=== PATIENT | male | born 1970 | race Caucasian/White ===

== ENCOUNTER → 2023-08-13 14:05 | Outpatient (REF) | payer OTHER, SELFPAY | LOC: HWRAD 14:05 | PROVIDERS: ATTENDING PHYSICIAN Nurse Practitioner | DX: M10.9 Gout, unspecified (principal) | CPT/HCPCS: 73630 ==

== ENCOUNTER 2023-09-19 13:45 | Inpatient (IN) | payer OTHER, SELFPAY ==
[2023-09-18 19:26] VITALS: BP 132/86
[2023-09-18 19:48] LABS: % Basophils 0.4 % (0-2); % Eosinophils 1.1 % (0-6); % Immature Granulocytes 0.3 % (0-0.5); % Lymphocytes 35.9 % (20.5-51.1); % Monocytes 7.9 % (1.7-9.3); % Neutrophils 54.4 % (42.2-75.2); Absolute Eosinophils 0.1 10^3/uL (0-0.7); Absolute Lymphocytes 3.7 10^3/uL (1.2-3.4); Absolute Monocytes 0.8 10^3/uL (0.1-0.6); Absolute Neutrophils 5.5 10^3/uL (1.4-6.5); Hematocrit 39.7 % (39.0-52.0); Hemoglobin 13.7 g/dL (13.0-18.0); Mean Corp Hgb Conc. 34.5 g/dL (33.0-37.0); Mean Corpuscular Hgb 29.5 pg (27.0-31.0); Mean Corpuscular Volume 85.6 fL (80.0-94.0); Mean Platelet Volume 9.1 fL (7.4-10.4); Nucleated Red Blood Cells % 0 % (-); Platelet Count 243 10^3/uL (130-400); Red Blood Cell Count 4.64 10^6/uL (4.70-6.10); Red Cell Dist. Width 13.1 % (11.5-14.5); White Blood Cell Count 10.2 10^3/uL (4.8-10.8)
[2023-09-18 20:10] LABS: ALT (SGPT) 24 U/L (0-50); AST (SGOT) 21 U/L (17-59); Albumin 4.5 g/dl (3.5-5.0); Alkaline Phosphatase 72 U/L (38-126); Blood Urea Nitrogen 28 mg/dl (9-20); Calcium 9.4 mg/dl (8.4-10.2); Carbon Dioxide 30 mmol/L (22-30); Chloride 101 mmol/L (98-107); Glucose 113 mg/dl (70-99); Potassium 4.9 mmol/L (3.5-5.1); Sodium 134 mmol/L (135-145); Total Bilirubin 0.3 mg/dl (0.2-1.3); Total Protein 6.9 g/dl (6.3-8.2); eGFR > 60.00
[2023-09-18 20:13] LABS: Troponin I < 0.012 ng/ml
[2023-09-18 22:21] VITALS: BP 132/90
--- NOTE | 2023-09-18 22:38 | ED.CVA ---
History of Present Illness
General
Chief Complaint: CVA/TIA Symptoms
Time Seen by Provider: 09/18/23 21:39
Onset of Stroke Symptoms
Onset of symptoms known: Yes
Date of onset of symptoms: 09/18/23
Time of onset of symptoms: 18:30
Travel History
Have you had any contact with someone who has COVID-19?: Yes
Comment: on friday
Do you have any symptoms of coronavirus? Fever > 100 degrees, chills, cough, shortness of breath, sore throat, loss of taste or smell, muscle aches, or headache?: No
History of Present Illness
History of Present Illness:
53-year-old male with history of hypertension and hyperlipidemia presents to the emergency department for evaluation of transient right peripheral vision loss that occurred earlier today. He states that he had abrupt loss of his right peripheral
vision lasting anywhere from 30 to 45 minutes. This was associated with a mild headache and lightheadedness. Symptoms resolved gradually upon arriving to the emergency department. He denies any other associated symptoms. Has never had any
similar symptoms. Denies any history of TIA or stroke. Denies any photophobia, neck pain, chest pain, shortness of breath, extremity paresthesias. was present during the event and denies noticing any confusion or dysarthria.
Past History
Past History
ED Past Medical History: HTN, Hypercholesterolemia and Hypothyroidism
ED Past Surgical History: Orthopedic (Shoulder surgery )
Social History
Tobacco: Non-smoker
Alcohol: Occasional
Personal:
Living: with family
Employment: Employed
Review of Systems
Review of Systems
Allergies reviewed?: Yes
All Other Systems: ROS reviewed and negative except as documented in HPI and ROS
Phy Exam
Physical Exam
Physical Exam:
GEN: Well appearing, NAD, WDWN
HEENT: Oral mucosa moist, no scleral icterus, no nasal congestion
Cardiac: Regular rate
Lung: No respiratory distress, no tachypnea
MSK: No gross deformity or injuries
Skin: Good color, no pallor or jaundice, no rashes
Neuro: AO x3; CN II-XII grossly intact. BUE strength 5/5 in all newell, sensation intact and symmetric. BLE strength 5/5 in all newell, sensation intact and symmetric. Visual newell intact x 4 bilaterally
Psych: Calm, cooperative
Course
Orders/Labs/Results
Orders:
Orders
09/18/23 19:33
EKG [Electrocardiogram (*1)] Urgent
Reason for Study: TIA/Stroke
Comment: symptoms
09/18/23 19:34
EKG- Treatment ONCE
09/18/23 19:[address] [CT Head W/o Iv Contrast] Urgent
Comment: sudden onset of headache following
Reason For Exam: loss of peripheral vision in one eye briefly
09/18/23 19:44
Complete Blood Count/With Diff Urgent
Comprehensive Metabolic Panel Urgent
Troponin I Urgent
09/18/23 22:18
Aspirin 325 mg PO NOW STA
Clopidogrel Bisulfate [Plavix] 75 mg PO NOW STA
Abnormal Lab Results
09/18/23
19:44
RBC 4.64 L 10^6/uL
(4.70-6.10)
Absolute Lymphs (auto) 3.7 H 10^3/uL
(1.2-3.4)
Absolute Monos (auto) 0.8 H 10^3/uL
(0.1-0.6)
Sodium 134 L mmol/L
(135-145)
BUN 28 H mg/dl
(9-20)
Glucose 113 H mg/dl
(70-99)
09/18/23 19:44
09/18/23 19:44
Vital Signs
Initial and Last Documented VS:
Initial Vital Signs
Temp Pulse Resp BP Pulse Ox
98.1 F 84 16 132/86 97
09/18/23 19:26 09/18/23 19:26 09/18/23 19:26 09/18/23 19:26 09/18/23 19:26
Last Documented Vital Signs
Temp Pulse Resp BP Pulse Ox
98.1 F 84 16 132/86 97
09/18/23 19:26 09/18/23 19:26 09/18/23 19:26 09/18/23 19:26 09/18/23 19:26
MDM/Problems Addressed
MDM/Problems Addressed:
Patient's symptoms are highly concerning for a TIA, he is high risk for future cerebrovascular events given his history of hypertension hyperlipidemia and his noncontrast head CT showing parietal encephalomalacia suggesting a prior CVA. Patient has
no known history of prior CVA. No prior carotid imaging in his past. Case discussed with neurology, recommend dual antiplatelets and admission for further TIA/CVA workup
Comment
Comment:
EKG independently interpreted by me shows normal sinus rhythm at a rate of [address] changes concerning for ischemia
*Critical Care Note
Total Time (30-74mins, 75-104mins- exclusive of procedures): Not Applicable
ED Attending Note
-
Portions of this chart may have been created with voice recognition software.� Occasional wrong word or��sound alike� substitutions may have occurred due to the inherent limitations of voice recognition software.
Discharge Plan
Departure
Patient Disposition: Admit
Date of Disposition: 09/18/23
Time of Disposition: 22:41
Admit to: Telemetry
Presentation/result/management discussed w/ accepting MD/DO: Hospitalist
Discharge Problem:
Transient ischemic attack (TIA)
Prescriptions:
No Action
methocarbamol 500 mg Tablet
750 mg PO Q8H
acetaminophen [Tylenol] 325 mg Tablet
650 mg PO Q6HPRN PRN (Reason: mild pain)
atorvastatin [Lipitor] 10 mg Tablet
10 mg PO HS
meloxicam [Mobic] 15 mg Tablet
15 mg PO DAILY
Theragen Tablet
1 tab PO DAILY
allopurinol 100 mg Tablet
100 mg PO DAILY
levothyroxine [Synthroid] 125 mcg Tablet
125 mcg PO DAILY
lisinopril 10 mg Tablet
10 mg PO DAILY
Referrals:
Sienna Rocha CRNP [Family Provider] -
Interventions
Interventions:
*Risk Screen - Suicide Last Done: 09/18/23 19:26
*General Assessment Last Done: 09/18/23 19:26
*Neglect/Abuse Screening Last Done: 09/18/23 19:26
*ED COVID-19 Vaccine History Last Done: 09/18/23 19:26
ED- Pulmonary Assessment Last Done: 09/18/23 22:27
ED- Neurological Assessment Last Done: 09/18/23 22:27
ED- Cardiac Assessment Last Done: 09/18/23 22:27
[2023-09-18] MEDS: PLAVIX 75 MG PO (22:39)
[2023-09-18] MEDS: ASPIRIN 325 MG PO (22:39)
[2023-09-18 23:00] VITALS: BP 121/80
--- NOTE | 2023-09-18 23:01 | HPS.HSE ---
Family Physician
-
Family Physician: DENEEN Paris
Chief Complaint
-
right peripheral vision loss
History of Present Illness
53-year-old male past medical history of hypertension, hypercholesteremia, hypothyroidism presenting to the emergency room for transient right peripheral vision loss from the right eye at 6:30 PM today. He had abrupt loss of his right peripheral
vision lasting 30 to 45 minutes associated with mild headache and lightheadedness. Symptoms resolved upon arriving to the emergency room. He denies any history of TIA or stroke although he did have an episode 3 years ago with bilateral blurry
vision and headache that he attributes to migraine. He denies any photophobia, neck pain, numbness or tingling, difficulty speaking, focal weakness, gait dysfunction.
He denies any history of heart disease.
He smokes half a pack of cigarettes a day. He drinks alcohol occasionally. He denies any other drugs. His mother had vascular disease.
Medical History
Past Medical History
Past Medical History: Reports Other ( hypertension, hypercholesteremia, hypothyroidism)
Past Surgical History: Reports None
Social History
Tobacco: Smoker
Alcohol: Occasional
Drug: None
Family History
Family History: Not pertinent
Allergies / Home Medications
Allergies reflects when Allergies were last updated in [facility].
Home Medications with original date entered in [facility]
Allergy/Medication List:
Allergies
Allergy/AdvReac Type Severity Reaction Status Date / Time
sulfamethoxazole Allergy Unknown Verified 09/18/23 19:40
[From Bactrim]
trimethoprim [From Bactrim] Allergy Unknown Verified 09/18/23 19:40
yellow jacket Allergy Vomiting Uncoded 09/18/23 19:40
Home Medications
acetaminophen 325 mg tablet (Tylenol) 650 mg PO Q6HPRN PRN mild pain 09/18/23
allopurinol 100 mg tablet 100 mg PO DAILY 09/18/23
atorvastatin 10 mg tablet (Lipitor) 10 mg PO HS 09/18/23
levothyroxine 125 mcg tablet (Synthroid) 125 mcg PO DAILY 09/18/23
lisinopril 10 mg tablet 10 mg PO DAILY 09/18/23
meloxicam 15 mg tablet 15 mg PO DAILY 09/18/23
methocarbamol 500 mg tablet 750 mg PO Q8H 09/18/23
therapeutic multivitamin 1 tab PO DAILY 09/18/23
Review of Systems
-
History Source: Patient
A 12 point ROS was completed and negative except as noted: Yes
Constitutional: Reports No Symptoms
EENT: Reports No Symptoms
Respiratory: Reports No Symptoms
Cardiac: Reports No Symptoms
Abdomen/GI: Reports No Symptoms
: Reports No Symptoms
Musculoskeletal: Reports No Symptoms
Skin: Reports No Symptoms
Neurological: Reports No Symptoms
Endocrine: Reports No Symptoms
Hematologic/Lymphatic: Reports No Symptoms
Psych: Reports No Symptoms
Physical Exam
Vital Signs
Vital Signs
Temp Pulse Resp BP Pulse Ox
98.1 F 84 16 132/86 97
09/18/23 19:26 09/18/23 19:26 09/18/23 19:26 09/18/23 19:26 09/18/23 19:26
Physical Exam
General: Well Developed, Well Nourished and No Apparent Distress
HEENT: NormoCephalic, Moist mucous membranes and Atraumatic
Respiratory: Clear
Cardiac: S1/S2 and Regular Rhythm; No Murmur or Rub
GI: Soft, Non Tender, Non Distended and Normal Bowel Sounds; No Organomegaly
Rectal: Deferred by Provider
Musculoskeletal: No Clubbing, No Cyanosis and No Edema
Skin: No Rash
Neuro: Nonfocal/grossly intact
Laboratory Results
-
09/18/23 19:44
09/18/23 19:44
Laboratory Results
Total Bilirubin 0.3 mg/dl (0.2-1.3) 09/18/23 19:44
AST 21 U/L (17-59) 09/18/23 19:44
ALT 24 U/L (0-50) 09/18/23 19:44
Alkaline Phosphatase 72 U/L (38-126) 09/18/23 19:44
Troponin I < 0.012 ng/ml 09/18/23 19:44
Data Reviewed
-
Lab Data: Labs Reviewed by me
Old Records: Reviewed
Impression/Plan
-
IMPRESSION:
PLAN:
# TIA versus CVA
-CT head shows focal area of encephalomalacia in the posterior right parietal region consistent with previous area of infarct
-Aspirin and Plavix started
-Check MRI brain
-Check carotid ultrasound
-Check A1c and lipid panel
-Neurology consulted
-Increase atorvastatin to 40 mg
Essential hypertension
-Continue lisinopril
Hypercholesterolemia
-Continue statin
Hypothyroidism
-Continue levothyroxine
Gout
-Continue allopurinol
Chronic pain
-Hold meloxicam for now
-Continue methocarbamol
Active smoker
-Smokes half a pack of cigarettes per day
Full code
DVT prophylaxis�SCDs
Regular diet
[2023-09-19] VITALS: BP 113/65
[2023-09-19 01:00] VITALS: BP 118/87
[2023-09-19 06:09] LABS: Hematocrit 39.2 % (39.0-52.0); Hemoglobin 13.4 g/dL (13.0-18.0); Mean Corp Hgb Conc. 34.2 g/dL (33.0-37.0); Mean Corpuscular Volume 84.8 fL (80.0-94.0); Mean Platelet Volume 9.6 fL (7.4-10.4); Platelet Count 236 10^3/uL (130-400); Red Blood Cell Count 4.62 10^6/uL (4.70-6.10); Red Cell Dist. Width 13.2 % (11.5-14.5); White Blood Cell Count 10.7 10^3/uL (4.8-10.8)
[2023-09-19 06:49] LABS: Blood Urea Nitrogen 22 mg/dl (9-20); Calcium 9.5 mg/dl (8.4-10.2); Carbon Dioxide 25 mmol/L (22-30); Chloride 103 mmol/L (98-107); Glucose 106 mg/dl (70-99); HDL Cholesterol 40 mg/dl; LDL Cholesterol, Calculated 78 mg/dl; Potassium 4.1 mmol/L (3.5-5.1); Sodium 137 mmol/L (135-145); Total Cholesterol 139 mg/dl (50-199); Triglyceride 108 mg/dl (10-149); Very Low Density Lipoprotein 21 mg/dl (0-30); eGFR > 60.00
[2023-09-19] MEDS: SYNTHROID 125 MCG PO (08:12)
[2023-09-19 08:23] VITALS: BP 133/85
--- NOTE | 2023-09-19 08:36 | PTCARENOTE ---
pt is ED hold on tele, pt is ambulatory in room prn and is on r.a. call hinojosa is in reach, will continue to monitor.
[2023-09-19 08:45] LABS: Glycohemoglobin (HgbA1c) 6.3 % (4.0-5.6)
[2023-09-19] MEDS: LOW STRENGTH ASPIRIN 81 MG PO (08:59)
[2023-09-19] MEDS: THERAGRAN 1 TABLET PO (09:00)
[2023-09-19] MEDS: PLAVIX 75 MG PO (09:00)
[2023-09-19] MEDS: ZESTRIL 10 MG PO (09:00)
[2023-09-19] MEDS: ZYLOPRIM 100 MG PO (09:00)
--- NOTE | 2023-09-19 11:01 | W.PN.HOSP.TC ---
Today's Communication/Plan
-
Await MRI
2D echocardiogram
atorvastatin 40 mg
Aspirin 81 mg daily/
Smoking cessation again stressed
Assessment / Plan
Assessment / Plan
53-year-old male past medical history of hypertension, hypercholesteremia, hypothyroidism presenting to the emergency room for transient right peripheral vision loss from the right eye at 6:30 PM today.� He had abrupt loss of his right peripheral
vision lasting 30 to 45 minutes associated with mild headache and lightheadedness.� Symptoms resolved upon arriving to the emergency room.� He denies any history of TIA or stroke although he did have an episode 3 years ago with bilateral blurry
vision and headache that he attributes to migraine.� He denies any photophobia, neck pain, numbness or tingling, difficulty speaking, focal weakness, gait dysfunction.
He denies any history of heart disease. History of recurrent epistaxis that required cauterization by ENT in the past.
He smokes half a pack of cigarettes a day.� He drinks alcohol occasionally.� He denies any other drugs.� His mother had vascular disease.
CT of the head unremarkable for any acute findings however does show area of encephalomalacia of the right posterior parietal consistent with old ischemic infarct
# TIA versus CVA
-CT head shows focal area of encephalomalacia in the posterior right parietal region consistent with previous area of infarct
-Aspirin and Plavix started�
-Check MRI brain/MRA
-Check A1c and lipid panel
-Neurology consulted
-Increase atorvastatin to 40 mg
Essential hypertension
-Continue lisinopril
Hypercholesterolemia
-Continue statin
Hypothyroidism
-Continue levothyroxine
Gout
-Continue allopurinol
Chronic pain
-Hold meloxicam for now
-Continue methocarbamol
History of recurrent epistaxis
-Has required prior cautery by ENT
-Continues to use Vaseline and nasal spray
-Will be at risk for recurrence with dual antiplatelet therapy/per neurology would favor only aspirin therapy going forward
Active smoker
-Smokes half a pack of cigarettes per day
Full code
DVT prophylaxis�SCDs
Regular diet
Anticipated Discharge: Within 24 hours
Subjective/Interval History
-
Date of Service: September 19, 2023
No further visual issues passed swallow screen overnight tolerated a.m. meal. Denies any headache
Objective Data
-
Labs:
Laboratory Results
09/19/23
05:48
WBC 10.7
Hgb 13.4
Hct 39.2
Plt Count 236
Sodium 137
Potassium 4.1
Chloride 103
Carbon Dioxide 25
BUN 22 H
Creatinine 0.7
Glucose 106 H
Calcium 9.5
Vital Signs:
Vital Signs
Temp Pulse Resp BP Pulse Ox
98.1 F 60 14 133/85 98
09/19/23 08:23 09/19/23 09:00 09/19/23 08:23 09/19/23 09:00 09/19/23 08:23
Review of Systems
-
History Source: Patient
All other systems: Reviewed and negative
Constitutional: Reports No Symptoms
EENT: Reports No Symptoms Reported
Respiratory: Reports No Symptoms
Cardiac: Reports No Symptoms
Abdomen/GI: Reports No Symptoms
Physical Exam
-
General: Well Developed
HEENT: Normocephalic
Respiratory: Clear to Auscultation
Cardiac: Regular Rhythm; Negative Murmur
GI: Soft
Genito-urinary: Costovertebral Angle Tend
Neuro: Awake, Oriented, AO x 3, No Motor Deficits, Central Nerve's Intact, No Sensory Deficits and DTR's Intact & Symmetrica
Psych: Calm
Data Reviewed
-
Total Time Spent with Patient (in minutes): 56
CT Scan: Discussed with Physician (No acute findings but did note encephalomalacia of the right posterior parietal region consistent with a prior infarct)
Labs: Labs Reviewed by me (LDL 78 total cholesterol of 130)
[2023-09-19 11:04] VITALS: BP 114/71
[2023-09-19 11:22] VITALS: BMI 27.1
[2023-09-19 13:17] VITALS: BMI 27.1
[2023-09-19 13:18] VITALS: BP 117/72
--- NOTE | 2023-09-19 13:32 | PTCARENOTE ---
Patient admitted from the ER into room 408-02. NIH score zero. Vision issue on right side resolved. Vital signs stable. Educated patient on plan of care. Stroke packet given to patient. at bedside. Educated on use of call hinojosa, television and
bed controls. Patient and verbalize understanding of teaching and deny questions at this time.
--- NOTE | 2023-09-19 14:42 | CON.NEURO4 ---
Consultation - Neurology 4
-
CONSULTING PHYSICIAN: John Paul Davis
REFERRING PHYSICIAN: ER
DICTATED BY: John Paul Davis
DATE/TIME OF REQUEST: 09/19/23
DATE/TIME OF CONSULTATION: 09/19/23
Reason for Consultation: Vision change
History of Present Illness:
Patient is a 53-year-old right-handed man with a past ministry of hypertension, hyperlipidemia and tobacco use presented to hospital with acute onset of painless right eye peripheral vision field change. This happened yesterday in the evening
around 6:00, was quite sudden and seem to last around 60 minutes and was mostly improved by the time of coming to the ER but seem to be completely normalized by around 3 hours after symptom onset.
The change was described as a blurring and loss of vision in the right lateral field of the right eye only where he could not see objects like his hand, and he covered his right eye and then his left eye that seem to be isolated to the right eye
only to the best that he could tell. He had had no dysarthria paresthesia or weakness vertigo or loss of consciousness with this. Had a minor amount of head pressure afterward. He feels like his vision is returned to completely normal at this
point. 3 years ago he had several hours of blurred vision and headache that spontaneously resolved he see a PCP for it and thought that if it recurred again he needed to go to the ER. He does not have any history of consistent headaches with any
migraine features.
Has had some minor nose bleeds the past week. Was going to see ENT about it today.
No history of stroke or CT or CAD.
Past Medical History: hypertension, hyperlipidemia
Surgical History: Bilateral knee replacements, right ankle surgery
Family History: Non-contributory
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
Review of Symptoms:
Patient denies any fever, headache, chest pain, shortness of breath, GI or symptoms.
Physical Exam:
Well-appearing middle-age man well-groomed well-nourished no signs of head or neck trauma eyes are clear oropharynx is clear his neck supple with no masses full range of motion of the neck heart rate regular breathing unlabored abdomen soft
nontender no lower extremity edema is seen
Neurologic Examination:
The patient is awake, alert and oriented x 3. He is able to follow commands and answer questions appropriately. There is no aphasia or dysarthria. On cranial nerve assessment, pupils are 3 mm bilateral, round and reactive to light and
accommodation. Visual cameron are full. Extraocular movements are intact. Facial sensations are intact and bilaterally symmetrical, there is no facial asymmetry. Hearing is intact bilaterally to normal conversation volume. Tongue palate and uvula
are midline. Sternocleidomastoid strengths are full bilaterally. Motor strengths are 5/5 bilateral upper and lower extremities on medical research [place] scale. There is no drift or involuntary movement noted. Deep tendon reflexes are 2+ bilateral
upper and lower extremities and Babinski is absent bilaterally. Sensations of pain, touch, temperature and vibration are intact and bilaterally symmetrical. There was no extinction noted on double simultaneous stimulation. Coordination is intact by
finger to nose bilaterally.
Neuro Imaging:
MRI of the brain demonstrates a left occipital lobe acute infarction in the left DENTAL NURSE territory
No significant intracranial stenosis in the posterior circulation is seen in the bilateral DENTAL NURSE or basilar artery
Nonvisualization of portion of the left vertebral artery probably artifactual, no significant stenosis of the other portions of the left vertebral artery, right vertebral artery is widely patent
Impressions
1. Acute ischemic stroke in the left DENTAL NURSE territory causing the right-sided visual hemifield symptoms. Most likely atheroembolic versus cardioembolic etiology, risk factors of hypertension hyperlipidemia and smoking.
2. Recent minor epistaxis would lead me to not pursue DAPT therapy rather single antiplatelet therapy
3. Hypertension
4. Hyperlipidemia
5. Tobacco smoking
Patient has the following risk factors for their symptoms: Smoking, HTN, HLD
Recommendations:
1. Goal normotension
2. Single antiplatelet therapy with aspirin 81 mg daily given the recent minor epistaxis
3. Check lipid panel, pursue goal LDL less than 70 and increase statin accordingly
4. Encourage smoking cessation
5. Check transthoracic echocardiogram and monitoring cardiac telemetry
6. Neurologic checks and NIH scales
7. Should have outpatient ophthalmology testing of visual cameron
Will follow
Discussed patient care with: Patient
NIH Stroke Score
Subsequent NIH Scale
Date of Subsequent NIH Scale: 09/19/23
Time of Subsequent NIH Scale: 09:00
NIH Stroke Score
Level of Consciousness: 0 - Alert
LOC Questions: 0-Answers both correctly
LOC Commands: 0-Performs both correctly
Best Horizontal Gaze: 0-Normal
Visual Cameron: 0=Normal, no visual loss
Facial Palsy: 0=Normal, symmetrical
Motor - Right Arm: 0=No drift 10 seconds
Motor - Left Arm: 0=No drift 10 seconds
Motor - Right Le-No drift 5 seconds
Motor - Left Le-No drift 5 seconds
Limb Ataxia: 0-Absent
Sensation: 0-Normal
Best Language: 0-No aphasia
Dysarthria: 0-Normal
Extinction and Inattention: 0-No abnormality
Total Score:: 0
Home Medications
-
Home Medications
acetaminophen 325 mg tablet (Tylenol) 650 mg PO Q6HPRN PRN mild pain 09/18/23
allopurinol 100 mg tablet 100 mg PO DAILY Gout 09/18/23
atorvastatin 10 mg tablet (Lipitor) 10 mg PO HS High Cholesterol 09/18/23
levothyroxine 125 mcg tablet (Synthroid) 125 mcg PO DAILY Thyroid 09/18/23
lisinopril 10 mg tablet 10 mg PO DAILY Blood Pressure 09/18/23
meloxicam 15 mg tablet 15 mg PO DAILY Pain 09/18/23
methocarbamol 500 mg tablet 750 mg PO Q8H Muscle Spasms 09/18/23
therapeutic multivitamin 1 tab PO DAILY Pain 09/18/23
Vital Signs / Labs
-
Vital Signs and Labs:
Temp Pulse Resp BP Pulse Ox
98 F 65 18 117/72 97
09/19/23 13:18 09/19/23 13:18 09/19/23 13:18 09/19/23 13:18 09/19/23 13:18
09/19/23 05:48
09/19/23 05:48
09/18/23 09/19/23
19:44 05:48
RBC 4.64 L 4.62 L
Absolute Lymphs (auto) 3.7 H
Absolute Monos (auto) 0.8 H
Sodium 134 L
BUN 28 H 22 H
Glucose 113 H 106 H
Hemoglobin A1c 6.3 H
--- NOTE | 2023-09-19 15:24 | PTCARENOTE ---
Pt in Cardiac Services for Echo/Bubble study. Procedure completed per protocol with aseptic technique. Right antecubital IV site utilized, flushed easily pre and post procedure. Pt tolerated procedure well, offers no complaints.
--- NOTE | 2023-09-19 16:09 | W.DS.TRANS ---
DC Summary - Manager Animal
-
Discharge Instructions:
Discharge Diagnosis/Procedures Left occipital ischemic stroke
Diet Low Cholesterol
Activity As tolerated
Driving Restrictions As prior to admission
Instructions:
Stand-Alone Forms:
Changes to Home Medications: Yes
Discharge Medications:
DC Medications w/original date entered in the [facility]fter
acetaminophen 325 mg tablet (Tylenol) 650 mg PO Q6HPRN PRN mild pain 09/18/23
allopurinol 100 mg tablet 100 mg PO DAILY Gout 09/18/23
levothyroxine 125 mcg tablet (Synthroid) 125 mcg PO DAILY Thyroid 09/18/23
lisinopril 10 mg tablet 10 mg PO DAILY Blood Pressure 09/18/23
meloxicam 15 mg tablet 15 mg PO DAILY Pain 09/18/23
methocarbamol 500 mg tablet 750 mg PO Q8H Muscle Spasms 09/18/23
therapeutic multivitamin 1 tab PO DAILY Pain 09/18/23
aspirin 81 mg chewable tablet (Children's Aspirin) 81 mg PO DAILY #30 tabs 09/19/23
atorvastatin 40 mg tablet 40 mg PO HS #30 tabs 09/19/23
Home Medication Changes
aspirin 81 mg chewable tablet (Children's Aspirin) 81 mg PO DAILY #30 tabs 09/19/23
atorvastatin 40 mg tablet 40 mg PO HS #30 tabs 09/19/23
Pending Results: No
Total time spent discharging patient (in min): 45
--- NOTE | 2023-09-19 16:11 | W.DCSUMMARY ---
Discharge Summary
Discharge Data
Date of Admission: 09/19/23
Date of Discharge: 09/19/23
-
Pending Results: No
Hospital Course
53-year-old male past medical history of hypertension, hypercholesteremia, hypothyroidism presenting to the emergency room for transient right peripheral vision loss from the right eye at 6:30 PM today.� He had abrupt loss of his right peripheral
vision lasting 30 to 45 minutes associated with mild headache and lightheadedness.� Symptoms resolved upon arriving to the emergency room.� He denies any history of TIA or stroke although he did have an episode 3 years ago with bilateral blurry
vision and headache that he attributes to migraine.� He denies any photophobia, neck pain, numbness or tingling, difficulty speaking, focal weakness, gait dysfunction.
He denies any history of heart disease.� History of recurrent epistaxis that required cauterization by ENT in the past.
He smokes half a pack of cigarettes a day.� He drinks alcohol occasionally.� He denies any other drugs.� His mother had vascular disease.
He also carries a history of recurrent epistaxis that required cautery in the past by ENT
He was recently started at time of admission on dual antiplatelet therapy on further discussion with the neurology service given his risk of further epistaxis on DAPT consideration going forward is solely with aspirin therapy
-He continued to remain without any visual changes with a normal exam after admission was evaluated by the neurology service and will be seen as follow-up with recommendation also to follow-up with ophthalmology for visual field exam.
Lipid panel did show an LDL of 78/atorvastatin was increased from 10 to [address] of the head unremarkable for any acute findings however does show area of encephalomalacia of the right posterior parietal consistent with old ischemic infarct
MRI of the brain showed a small left occipital infarct
MRA of neck vessels and inupiat of [place] were normal
2D echocardiogram reported a normal biventricular function however a bubble study showing a small PFO/on curbside consultation with cardiology and neurology felt not to be the sole source of this event and need to rule out hypercoagulable state.
Recommendations on discharge is to abstain from further cigarette smoking/daily low-dose aspirin therapy 81 mg /increase atorvastatin to 40 mg daily both called into his local pharmacy
Told to seek referral for his PCP for hematology evaluation for hypercoagulability and follow-up with cardiology of his PFO going forward/he should have further follow-up with neurology service in 3 to 4 weeks/he is also recommended he seek
ophthalmology evaluation for visual field assessment
Discharge Plan
-
Patient Disposition: Home (Routine Discharge)
Discharge Diagnosis/Procedures: Left occipital ischemic stroke
Diet: Low Cholesterol
Activity: As tolerated
Driving Restrictions: As prior to admission
Referrals:
Roshni Agudelo DO [Active] - in two to four weeks
Sienna Rocha CRNP [Family Provider] - in less than 1 week
(Need referral to hematology for hypercoagulable workup
Needs referral to cardiology for follow-up of PFO found on echocardiogram)
Additional Discharge Medication Instructions: Abstain from further cigarette smoking
Prescriptions:
New
atorvastatin 40 mg Tablet
40 mg PO HS Qty: 30 0RF
aspirin [Children's Aspirin] 81 mg Tablet,Chewable
81 mg PO DAILY Qty: 30 0RF
Continued
methocarbamol 500 mg Tablet
750 mg PO Q8H
acetaminophen [Tylenol] 325 mg Tablet
650 mg PO Q6HPRN PRN (Reason: mild pain)
meloxicam 15 mg Tablet
15 mg PO DAILY
therapeutic multivitamin Tablet
1 tab PO DAILY
allopurinol 100 mg Tablet
100 mg PO DAILY
levothyroxine [Synthroid] 125 mcg Tablet
125 mcg PO DAILY
lisinopril 10 mg Tablet
10 mg PO DAILY
Discontinued
atorvastatin [Lipitor] 10 mg Tablet
10 mg PO HS
Discharge Orders:
Discharge Patient (As Directed); Ordered 09/19/23
Ordered By: Garrett Oconnor
--- NOTE | 2023-09-19 16:37 | PTCARENOTE ---
Reviewed discharge instructions with patient. Patient verbalizes understanding of all education. IV and tele removed. Left unit ambulatory with as transport.
== END 2023-09-19 17:23 | disposition home or self-care (01) | DRG 65 ==
LOC: 4 EAST ACU 13:45
PROVIDERS: ADMITTING PHYSICIAN Hospitalist; ATTENDING PHYSICIAN Internal Medicine; EMERGENCY PHYSICIAN Emergency Medicine; FAMILY PHYSICIAN Nurse Practitioner; OTHER PHYSICIAN Student in an Organized Health Care Education/Training Program
DX: I63.532 Cerebral infarction due to unspecified occlusion or stenosis of left posterior cerebral artery (principal); G45.9 Transient cerebral ischemic attack, unspecified; F17.210 Nicotine dependence, cigarettes, uncomplicated; I10 Essential (primary) hypertension; E78.00 Pure hypercholesterolemia, unspecified; E03.9 Hypothyroidism, unspecified; M10.9 Gout, unspecified; G89.29 Other chronic pain
CPT/HCPCS: 70450; 70544; 70548; 70551; 80048; 80053; 80061; 83036; 84484; 85025; 85027; 93005; 93306; 99285; A9585

== ENCOUNTER 2023-10-31 07:34 | Day surgery (SDC) | payer OTHER, SELFPAY ==
[2023-10-31 08:19] VITALS: BMI 28.4
== END 2023-10-31 10:32 | disposition home or self-care (01) ==
LOC: CATH 07:34
PROVIDERS: ATTENDING PHYSICIAN Internal Medicine Cardiovascular Disease; FAMILY PHYSICIAN Nurse Practitioner; OTHER PHYSICIAN Internal Medicine Cardiovascular Disease
DX: I08.1 Rheumatic disorders of both mitral and tricuspid valves (principal); Z86.73 Personal history of transient ischemic attack (TIA), and cerebral infarction without residual deficits; Q21.12 Patent foramen ovale; I10 Essential (primary) hypertension; E78.2 Mixed hyperlipidemia; E03.9 Hypothyroidism, unspecified; F17.210 Nicotine dependence, cigarettes, uncomplicated; Z79.82 Long term (current) use of aspirin
CPT/HCPCS: 93312; 93320; 93325

== ENCOUNTER 2023-11-28 11:52 | Day surgery (SDC) | payer OTHER, SELFPAY ==
[2023-11-28 13:01] VITALS: BMI 27.6
--- NOTE | 2023-11-28 13:50 | ITS.CL.IMPLP ---
[employer] - Implant Loop
Implant Loop
Procedure Report:
ILR implant
Date of Procedure: November 28, 2023
Patient : [id number]
Procedure: Insertable Loop Recorder Implant
Indication: Cryptogenic stroke
Implant: Reveal inq2: Cempratronic; Model# [id number] Q22; Serial# [id number]
Technique: The patient was prepped and draped in the usual fashion. Conscious sedation was administered was applied to the left prepectoral subcutaneous tissue. A subcutaneous pocket was created with blunt dissection. Hemostasis was excellent.
The device was placed in the pocket. The skin was closed with steri-strips. The estimated blood loss was minimal. There were no complications.
Final Programming: FVT 231 30/40 beats
VT 176 16 beats
Asystole 3 sec
David 30 bpm for 4 beats
AF On AF only.
Conclusion: Uncomplicated insertable loop implant.
Recommendation: Routine Reveal care.
cc: Dr. Agus Dunn
== END 2023-11-28 14:13 | disposition home or self-care (01) ==
LOC: CATH 11:52
PROVIDERS: ATTENDING PHYSICIAN Internal Medicine Cardiovascular Disease; FAMILY PHYSICIAN Nurse Practitioner
DX: Z09 Encounter for follow-up examination after completed treatment for conditions other than malignant neoplasm (principal); Z86.73 Personal history of transient ischemic attack (TIA), and cerebral infarction without residual deficits; H54.61 Unqualified visual loss, right eye, normal vision left eye; Q21.12 Patent foramen ovale; I10 Essential (primary) hypertension; E78.2 Mixed hyperlipidemia; E03.9 Hypothyroidism, unspecified; F17.210 Nicotine dependence, cigarettes, uncomplicated; Z79.82 Long term (current) use of aspirin
CPT/HCPCS: 33285; C1764

== ENCOUNTER 2024-08-18 06:24 | Day surgery (SDC) | payer OTHER, SELFPAY | END 2024-08-18 10:22 | disposition home or self-care (01) | LOC: GI 06:24 | PROVIDERS: ATTENDING PHYSICIAN Surgery | DX: Z12.11 Encounter for screening for malignant neoplasm of colon (principal); K57.30 Diverticulosis of large intestine without perforation or abscess without bleeding; K64.9 Unspecified hemorrhoids; Z86.0100 Personal history of colon polyps, unspecified | CPT/HCPCS: G0105 ==